=== PATIENT | female | born 1960 | race Caucasian/White ===

== ENCOUNTER → 2018-09-20 | Outpatient (CLI) | payer OTHER ==
[~2018-09-20] MED LIST: ATORVASTATIN CA10 MG PO; FARXIGA PO; IOPAMIDOL 370 MG/ML 200 ML INFUS..BTL INJ ONE; LOSARTAN POTASS25 MG PO; METFORMIN HCL500 MG PO; PANTOPRAZOLE SO40 MG PO; SODIUM CHLORIDE 0.9% 50ML 50 ML ONE; Z.0.ACIPHEX20 MG PO; Z.0.LISINOPRIL10 MG PO; Z.0.PENTASA500 MG PO
[2018-09-20 13:00] LABS: BLOOD UREA NITROGEN 16 mg/dL (7-26); BUN/CREATININE RATIO 19 (6-25); CREATININE, SERUM 0.84 mg/dL (0.57-1.11); EST GLOMERULAR FILTRATION RATE > 60 ML/MIN (60-)
--- NOTE | 2018-09-20 15:25 | Diagnostic Imaging Report ---
EXAM: CT Abdomen and Pelvis WITH contrast INDICATION: Abdominal Pain, diarrhea, history of inflammatory bowel disease. COMPARISON: Multiple prior CT abdomen and pelvis studies, most recently 04/13/2013 TECHNIQUE: Abdomen and pelvis were scanned utilizing a multidetector helical scanner from the lung base to the pubic symphysis after administration of IV contrast. Coronal and sagittal reformations were obtained. CT enterography protocol was performed. Scan was performed when during portal venous phase. IV CONTRAST: 100 mL of Isovue-370 ORAL CONTRAST: Water COMPLICATIONS: None RADIATION DOSE: Total DLP: (DLP x 0.015 x size factor) 806 mGy*cm Dose modulation, iterative reconstruction, and/or weight based adjustment of the mA/kV was utilized to reduce the radiation dose to as low as reasonably achievable. FINDINGS: LINES and TUBES: None. LOWER THORAX: No focal consolidation or pulmonary edema at the partially visualized lung bases. Mild scattered coronary calcifications. HEPATOBILIARY: No evidence of focal lesion. No biliary ductal dilation. GALLBLADDER: Status post cholecystectomy. SPLEEN: No splenomegaly. PANCREAS: No focal masses or ductal dilatation. ADRENALS: No adrenal nodules KIDNEYS/URETERS: Kidneys enhance symmetrically. No evidence of hydronephrosis, solid mass, or stone. GI TRACT: Focal area of jejunal wall thickening and mild hyperenhancement in the left mid abdomen, best seen on series 3 image 92. Scattered adjacent subcentimeter prominent mesenteric lymph nodes. No evidence of bowel obstruction. PELVIC ORGANS/BLADDER: Unremarkable. LYMPH NODES: Scattered subcentimeter prominent mesenteric lymph nodes. VESSELS: Mild scattered atherosclerotic calcifications of the abdominal aorta and major branches. PERITONEUM / RETROPERITONEUM: No free air or fluid. BONES AND SOFT TISSUES: No acute fracture or dislocation. 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 CONCLUSION: Focal area of jejunal wall thickening and mild hyperenhancement in the left mid abdomen with adjacent prominent mesenteric lymph nodes. In the setting of known inflammatory bowel disease, these findings can be seen with active inflammation. Signed by: Mahsa Keyes MD on 09/20/2018 3:22 PM
== END ==
LOC: CT 11:34
PROVIDERS: ATTEND Internal Medicine Gastroenterology
DX: R10.9 Unspecified abdominal pain (principal); R19.7 Diarrhea, unspecified; Z87.19 Personal history of other diseases of the digestive system
CPT/HCPCS: 36415; 74177; 82565; 84520; Q9967

== ENCOUNTER → 2020-07-20 | Day surgery (SDC) | payer BC, OTHER ==
[~2020-07-20] MED LIST changes: +FARXIGA10 MG PO; +HUMIRA PEN40 MG/0.8 INJ; +HYOSCYAMINE SULFATE 0.5 MG/ML INJ ONE; -IOPAMIDOL 370 MG/ML 200 ML INFUS..BTL INJ ONE; +LIDOCAINE HCL 2% LOCAL INJ 5 ML SDV VIAL INJ ONE; +PIOGLITAZONE HC45 MG PO; +PROPOFOL IV EMULSION 10 MG/ML 20 ML VIAL ONE; +PROVENTIL HFA6.7 GM INH; -SODIUM CHLORIDE 0.9% 50ML 50 ML ONE
[2020-07-20 09:50] VITALS: BP 119/78
== END | disposition home or self-care (01) ==
LOC: OR 05:50
PROVIDERS: ATTEND Internal Medicine Gastroenterology
DX: K50.90 Crohn's disease, unspecified, without complications (principal); K21.9 Gastro-esophageal reflux disease without esophagitis; E11.9 Type 2 diabetes mellitus without complications; K44.9 Diaphragmatic hernia without obstruction or gangrene; I10 Essential (primary) hypertension; E78.5 Hyperlipidemia, unspecified; J45.909 Unspecified asthma, uncomplicated; K64.8 Other hemorrhoids; K62.1 Rectal polyp; Z86.010 Personal history of colon polyps; Z88.5 Allergy status to narcotic agent; Z88.0 Allergy status to penicillin; Z88.8 Allergy status to other drugs, medicaments and biological substances; Z01.810 Encounter for preprocedural cardiovascular examination; Z01.812 Encounter for preprocedural laboratory examination; Z20.822 Contact with and (suspected) exposure to COVID-19
CPT/HCPCS: 36415; 45384; 82948; 93005; J1980; J2001; J2704; U0002; 45378